=== PATIENT | male | born 1960 | race Caucasian/White ===

== ENCOUNTER 2025-07-14 10:50 | Day surgery (SDC) | payer MEDICAID, OTHER ==
[2025-07-11 14:57] LABS: Absolute Lymphocytes (CBC) 1.0 K/uL (0.7-4.9); Hematocrit 39.5 % (39.6-49.0); Hemoglobin 13.9 g/dL (13.6-17.9); MCH 36.3 pg (27.0-35.0); MCHC 35.2 g/dL (32.0-36.0); MCV 103.3 fL (80-100); MPV 7.5 fL (7.6-11.3); Nucleated RBC Absolute Count 0.0 (0-0); Nucleated Red Blood Cells % 0.1 % (0-0); RBC Red Blood Cell Count 3.83 M/uL (4.33-5.43); White Blood Count 5.10 thou/uL (4.3-10.9)
[2025-07-11 15:14] LABS: Anion Gap 10.3 mEq/L (5.0-15.0); BUN Blood Urea Nitrogen 4.0 mg/dL (7-18); Glucose Level 95.0 mg/dL (74-106); PT Prothrombin Time 15.7 SECONDS (10-13.0); PTT, Activated Partial Thromb 35.2 SECONDS (27.2-37.4); Potassium 4.3 mEq/L (3.5-5.1); Protime INR 1.4
[2025-07-11 16:19] LABS: White Blood Cell Scan OK (OK)
[2025-07-11 16:20] LABS: Blood Morphology Comment NOTED (NOT SEEN); Teardrop Cell FEW
--- NOTE | 2025-07-11 23:24 | RAD REPORT ---
EXAMINATION: TWO VIEW CHEST XR CLINICAL INDICATION: Male, 65 years old. [facility] Pre-op pending heart catheterization. Hypertension TECHNIQUE: 2 view radiographs of the chest were performed. COMPARISON: No prior exam. FINDINGS: The lungs are well inflated and clear. No pneumothorax or sizable effusion. The heart is normal in si ze. Mediastinal contours are unremarkable. IMPRESSION: No acute or significant abnormalities.
[2025-07-14] MEDS ORDERED: NA CHLORIDE 0.9% 500 ML ONE (10:56)
[2025-07-14] MEDS ORDERED: FENTANYL CITR 100 MCG/2 ML ONE (11:24)
[2025-07-14] MEDS ORDERED: MIDAZOLAM HCL 2 MG/2 ML INJ ONE (11:24)
[2025-07-14] MEDS ORDERED: HEPA 1000U/500MLS 3,000 UNIT/1,500 ML BAG IV ONE (11:34)
[2025-07-14] MEDS ORDERED: LIDOCAINE 1% 20 ML MDV ONE (11:35)
[2025-07-14] MEDS ORDERED: HEPARIN 10,000 UNIT/10 ML VIAL IV ONE (11:35)
[2025-07-14] MEDS ORDERED: VERAPAMIL HCL 10 MG/4 ML VIAL IV ONE (11:35)
[2025-07-14] MEDS ORDERED: CLOPIDOGREL 75 MG TABLET ONE (11:36)
[2025-07-14] MEDS ORDERED: HEPARIN 5000 UNIT/ML 1 ML VIAL ONE (11:36)
[2025-07-14] MEDS ORDERED: ATROPINE SULF 1 MG/10 ML SYR IV ONE (11:36)
[2025-07-14] MEDS ORDERED: TICAGRELOR 90 MG TABLET PO ONE (11:36)
[2025-07-14] MEDS ORDERED: ASPIRIN 325 MG TAB ONE (11:36)
[2025-07-14] MEDS ORDERED: NITROGLYCERIN/D5W 50 MG/250 ML BTL IV ONE (11:39)
[2025-07-14 16:06] VITALS: BP 144/83; O2SAT 97
--- NOTE | 2025-07-15 04:02 | OP ---
Date of Procedure: 07/14/2025 Surgeon: NICOLETTE LOVE Procedure Performed: 1. Selective coronary angiogram. 2. Left heart catheterization. 3. Right heart catheterization. Indication: 1. Aortic valve stenosis. 2. Chest pain with abnormal stress test. Access: 1. Right radial artery 6-[place], closed with TR band. 2. Right IJ 7-[place], closed with manual pressure. Complications: None. Bleeding: Less than 50 mL. Total Sedation Time: 1 hour. Description Of Procedure: After risks, benefits, and alternatives were explained, the patient agreed to procedure and signed informed consent. The patient was brought into cardiac catheterization [facility], prepped and draped in sterile fashion, then I accessed right radial artery using pediatric mi cropuncture kit, ultrasound guidance, and placed 6-[place] slender sheath and accessed right IJ using ultrasound guidance and micropuncture kit and placed a 7-[place] sheath and took a 7-[place] b alloon-tipped [place] catheter through the IJ access into the right atrium, right ventricle, pulmonary a rtery and wedge, obtained waveform and pressure as well as cardiac output by thermodilutional method and removed the [place] IJ access and manual pressure was used for closure. Good hemostasis. Then, I t ook a 5-[place] 4 catheter through the radial access over J-wire into the aortic root, engaged l eft main and then right coronary artery, took standard views, and then across the aortic valve and ex changed for [place] dual-lumen catheter and obtained a simultaneous pressure between the LV and the aorta and calculated valve area and mean gradient, and then pulling back, there was no internal gradi ent and removed the catheter and the sheath and placed TR band with good hemostasis. Findings: Coronary angiogram: 1. Left main is normal. 2. LAD; proximal segment is normal; mid segment, there is 30% to 40% stenosis. Diagonal branches are normal. Rest of LAD is normal. 3. Left circumflex; large and codominant and normal. 4. RCA; large and codominant and normal. 5. Right heart catheterization numbers: RA pressure is 5/3 mean of 2; RV pressure is 22/1, mean of 2 ; PA pressure is 22/8, mean of 11; and pulmonary wedge pressure was only 5; and LVEDP was 10 mmHg. C [place] output was 7 L/minute and aortic valve gradient was 15 mmHg. Aortic valve area was 2 cm2. Conclusion: 1. Moderate coronary artery disease. 2. Normal filling pressures. 3. No significant aortic valve stenosis per this test. Plan: Medical management and stress test in a year. SR/MODL Voice ID: [id number] Report ID: [id number]
== END 2025-07-14 15:45 | disposition home or self-care (01) ==
LOC: CCL 10:50
PROVIDERS: ATTEND Internal Medicine
DX: I25.10 Atherosclerotic heart disease of native coronary artery without angina pectoris (principal); I35.0 Nonrheumatic aortic (valve) stenosis; I10 Essential (primary) hypertension
CPT/HCPCS: 93005; 85025; 80048; 36415; 85610; 85730; 71046; 93460; 76937; C1893; Q9966; J1644 ×2; J2003; J2250; J3010; J7040; 99152; 99153; J0461